=== PATIENT | female | born 1950 | race Two or more races ===

== ENCOUNTER 2020-11-29 07:45 | Inpatient (IN) | payer OTHER ==
[~2020-11-29] VITALS: Ht 165.1 cm; Wt 101.6 kg
[2020-11-29] MEDS ORDERED: HYZAAR 100-251 EACH PO (09:10)
[2020-11-29] MEDS ORDERED: PERCOC PO (09:11)
[2020-11-29] MEDS ORDERED: LIRICA PO (09:11)
[2020-11-29] MEDS ORDERED: ZANAFLEX2 M1 PO (09:12)
[2020-12-06] MEDS ORDERED: OXYC1TAB9 (09:16)
[2020-12-06] MEDS ORDERED: AMLODIPINE BESYL5 MG (09:16)
[2020-12-06] MEDS ORDERED: PREGABALIN150 MG (09:17)
[2020-12-06] MEDS ORDERED: DICLOFENAC SOD100 GM (09:17)
[2020-12-06] MEDS ORDERED: DULOXETINE HCL30 MG (09:17)
[2020-12-08] MEDS ORDERED: DUI500 PO (15:19)
[2020-12-08] MEDS ORDERED: PERCOCET 5-3251 EACH PO (15:19)
[2020-12-08] MEDS ORDERED: ELIQUIS2.5 MG PO (15:19)
== END 2020-12-08 18:51 | DRG 470 ==
LOC: SURG 12-06 05:10 → O/R 12-06 05:10 → SURH 12-06 06:30 → SURG 12-06 13:38
PROVIDERS: ADMIT Orthopaedic Surgery; ATTEND Orthopaedic Surgery
PROC: 0SRD0J9 Replacement of Left Knee Joint with Synthetic Substitute, Cemented, Open Approach (ICD-10-PCS; principal; 2020-12-06 06:30)
DX: M17.12 Unilateral primary osteoarthritis, left knee (principal); I10 Essential (primary) hypertension

== ENCOUNTER → 2020-12-03 10:37 | Outpatient (CLI) | payer OTHER ==
[~2020-12-03 10:37] MED LIST: AMLODIPINE BESYL5 MG; DICLOFENAC SOD100 GM; DUI500 PO; DULOXETINE HCL30 MG; ELIQUIS2.5 MG PO; HYZAAR 100-251 EACH PO; LIRICA PO; OXYC1TAB9; PERCOC PO; PERCOCET 5-3251 EACH PO; PREGABALIN150 MG; ZANAFLEX2 M1 PO
== END | disposition home or self-care (01) ==
LOC: LAB 10:37
PROVIDERS: ATTEND Internal Medicine
DX: E87.5 Hyperkalemia (principal)

== ENCOUNTER 2021-01-10 16:48 | Emergency (ER) | payer OTHER ==
[~2021-01-10] VITALS: Ht 165.1 cm; Wt 106.1 kg
[2021-01-10] MEDS ORDERED: PANTOPRAZOLE SO40 MG (17:19)
[2021-01-10] MEDS ORDERED: OXAPROZIN600 MG (17:19)
[2021-01-10] MEDS ORDERED: SIMVASTATIN20 MG (17:20)
== END 2021-01-10 20:00 | disposition home or self-care (01) ==
LOC: ER 16:48
DX: S80.02XA Contusion of left knee, initial encounter (principal); S90.02XA Contusion of left ankle, initial encounter; S13.4XXA Sprain of ligaments of cervical spine, initial encounter; S33.5XXA Sprain of ligaments of lumbar spine, initial encounter; W18.39XA Other fall on same level, initial encounter; Y93.89 Activity, other specified; Y92.488 Other paved roadways as the place of occurrence of the external cause

== ENCOUNTER 2024-09-22 06:31 | Day surgery (SDC) | payer OTHER ==
[2024-09-17 09:00] LABS: HEMATOCRIT 40.8 % (36.0-45.00); HEMOGLOBIN 13.8 g/dL (12.0-15.00); MEAN CELL VOLUME 91.1 fL (80.00-100.00); MEAN CORPUSCULAR HEMOGLOBIN 30.9 pg (27.00-32.0); MEAN CORPUSCULAR HGB CONC 33.9 g/dl (32.0-36.0); PLATELET COUNT 174 K/uL (150-450); RED BLOOD COUNT 4.47 M/uL (4.00-6.00); RED CELL DISTRIBUTION WIDTH 14.7 % (11.5-14.5)
[2024-09-17 09:20] LABS: PH,URINE 7.5 (5.0-8.0); URINE APPEARANCE Clear; URINE BILIRRUBIN Negative (NEGATIVE); URINE BLOOD Negative; URINE COLOR Yellow; URINE GLUCOSE Negative (NEGATIVE); URINE KETONE Negative (NEGATIVE); URINE LEUKOCYTE Negative; URINE NITRATE Negative; URINE PROTEIN Negative (NEGATIVE); URINE UROBILINOGEN 0.2 E.U./dl
[2024-09-17 09:24] LABS: URINE BACTERIA 105.7 uL (0.0-1933); URINE RBC 7.3 uL (0.0-20.8); URINE WBC 9.8 uL (0.0-23.2)
[2024-09-17 09:32] VITALS: BP 140/81
[2024-09-17 09:34] LABS: PARTIAL THROMBOPLASTIN TIME 26.7 SECONDS (22.0-34.0); PROTHROMBIN TIME 10.9 SECONDS (9.0-11.5)
[2024-09-17 09:46] LABS: ALBUMIN 3.7 gm/dL (3.4-5.0); BILIRUBIN TOTAL 0.64 mg/dL (0.3-1.2); CALCIUM 9.2 mg/dL (8.5-10.1); CHOL HDL RATIO 2.9 (0-5.0); CREATININE SERUM 0.83 mg/dL (0.55-1.02); GFR 67.57; GLOBULINA 3.1 G/DL (2.4-3.5); POTASSIUM 3.72 mEq/L (3.5-5.1); TOTAL PROTEIN 6.8 gm/dL (6.4-8.2)
[2024-09-17 12:44] LABS: RH NEGATIVE
[~2024-09-22] VITALS: Ht 165.1 cm; Wt 97.1 kg
[~2024-09-22 06:31] MED LIST changes: +CELEBREX100 MG PO; +COZAAR100 MG PO; +OXAPROZIN600 MG; +PANTOPRAZOLE SO40 MG; +SIMVASTATIN20 MG; +[UNRECOGNIZED DRUG - OTHER]
[2024-09-22] MEDS ORDERED: CEFAZOLIN SODIUM 1,000 MG VIAL IV ONE (17:45)
[2024-09-22] MEDS ORDERED: ONDANSETRON HCL 2 MG/ML VIAL IV PRN (18:00)
[2024-09-22] MEDS ORDERED: ACETAMINOPHEN 500 MG GEL..CAP PO SCH (18:00)
[2024-09-22] MEDS ORDERED: OxyCODONE HCL 5 MG TABLET (ROXICODONE) PO PRN (18:00)
[2024-09-22] MEDS ORDERED: TRANEXAMIC ACID 100MG/1ML (1000MG) AMPUL IV ONE ×2 (18:00)
[2024-09-22] MEDS ORDERED: MORPHINE SULFATE 4 MG/ML CARTRIDGE IV PRN (18:00)
[2024-09-22] MEDS ORDERED: SODIUM CHLORIDE 0.45 % 1,000 ML IV SCH (18:00)
[2024-09-22] MEDS ORDERED: DUI500 PO (18:14)
[2024-09-22] MEDS ORDERED: PERCOCET 5-3251 EACH PO (18:14)
[2024-09-22] MEDS ORDERED: MORPHINE SULFATE 4 MG/ML VIAL IV ONE (19:00)
[2024-09-23] MEDS ORDERED: GABAPENTIN 300 MG CAPSULE PO SCH (01:00)
[2024-09-23] MEDS ORDERED: CEFAZOLIN SODIUM 1,000 MG VIAL IV SCH (01:00)
[2024-09-23] MEDS ORDERED: SENNOSIDES 1 TAB TABLET PO SCH (09:00)
== END 2024-09-22 20:30 | disposition home or self-care (01) ==
LOC: CIR.AMB 06:31 → O/R 19:23 → CIR.AMB 19:23 → O/R 20:30
PROVIDERS: ATTEND Orthopaedic Surgery
DX: M75.101 Unspecified rotator cuff tear or rupture of right shoulder, not specified as traumatic (principal); M19.011 Primary osteoarthritis, right shoulder
CPT/HCPCS: 23472; 23430; L8699